=== PATIENT | male | born 1970 | race Caucasian/White ===

== ENCOUNTER 2023-02-25 18:17 | Emergency (ER) | payer MEDICAID, OTHER ==
[~2023-02-25] VITALS: Ht 172.7 cm; Wt 86.4 kg
[2023-02-25 18:24] VITALS: BP 142/87; PULSE 103; RESP 16; TEMP 98.9
[2023-02-25] MEDS ORDERED: SULFAMETHOX/TRIMETH DS 800-160 MG/TABLET PO ONE (19:15)
[2023-02-25] MEDS ORDERED: LIDOCAINE 1% 10 ML VIAL ID ONE (19:15)
[2023-02-25] MEDS ORDERED: POVIDONE-IODINE 10% 15 ML SOLUTION UD TP ONE (19:15)
[2023-02-25] MEDS ORDERED: SULF-261 PO (20:25)
== END 2023-02-25 21:51 | disposition home or self-care (01) ==
LOC: EMS 18:18
DX: L02.211 Cutaneous abscess of abdominal wall (principal)
CPT/HCPCS: 99284; J3490